=== PATIENT | male | born 1990 | race Caucasian/White ===

== ENCOUNTER 2021-09-28 12:49 | Day surgery (SDC) | payer SELFPAY ==
[2021-09-28] VITALS (8 sets, daily range): BP systolic 130–153; BP diastolic 74–101; PULSE 66–82; RESP 16–18; TEMP 35.5–36.7; O2SAT 92–98; BMI 37.5
--- NOTE | 2021-09-28 14:05 | CT_ITS ---
INDICATION: RLQ pain EXAMINATION: CT ABDOMEN AND PELVIS WITH CONTRAST - CT Abdomen And Pelvis W/ Contrast Injection TECHNIQUE: Helically acquired images were obtained of the abdomen and pelvis following IV contrast. A radiation dose optimization technique was used for this scan. IV Contrast dosage and agent: Oral contrast: None. COMPARISON: None. FINDINGS: LOWER CHEST: Lung bases are clear. No cardiomegaly or pericardial effusion. LIVER: Homogeneous. No focal mass. GALLBLADDER AND BILIARY TREE: No calcified gallstones. No gallbladder distension or wall edema. No intra- or extrahepatic biliary ductal dilation. PANCREAS: No focal cystic or solid mass. SPLEEN: Normal size without focal cystic or solid mass. ADRENAL GLANDS: No nodules. KIDNEYS AND URETERS: Normal renal size and position. No hydronephrosis. PERITONEUM: No ascites or free air. No other fluid collection. BOWEL: The stomach is visualized and is unremarkable. Fluid-filled loops of small bowel are visualized. No significant wall thickening visualized in the small bowel loops. A focal 1.3 cm density is visualized in the distal appendix, unremarkable aeration of the proximal and distal lumen is visualized, no evidence of stranding of the adjacent fat planes at this level. No evidence of adjacent lymphadenopathy is seen. Abundance of stool in the large bowel loops, no evidence of bowel wall thickening is seen. Scattered diverticular disease visualized in the large bowel, no evidence of acute diverticulitis is seen. A 2.2 cm segment of distal sigmoid demonstrates circumferential wall thickening as visualized on axial series 2 image 96, this could be artifactual due to peristalsis however would recommend follow-up evaluation. No evidence of endoluminal masses is seen. No stomach or bowel distension. No focal inflammatory change. LYMPH NODES: Scattered subtle mesenteric and retroperitoneal lymph nodes are seen. VESSELS: Aorta is non-dilated. URINARY BLADDER: Unremarkable. REPRODUCTIVE ORGANS: No pelvic masses. ABDOMINAL WALL: No discrete abdominal or pelvic wall hernia. BONES: No lytic or blastic abnormality. CT/Abdomen/Pelvis W IV Cont ONLY IMPRESSION: Scattered mesenteric lymph nodes visualized, differential diagnosis would include mesenteric adenitis. No evidence of stranding of the peritoneal fat planes is seen. Focal areas of increased attenuation visualized in the distal appendix with mild wall thickening seen at this segment, would recommend clinical correlation as there is no stranding of adjacent fat planes or adjacent lymphadenopathy however this could represent early appendicitis. 2.2 cm segment of distal sigmoid demonstrates circumferential wall thickening and luminal narrowing seen on axial series 2 image 96, this could be artifactual due to peristalsis however would recommend follow-up evaluation. Electronically Signed: Shola Miranda MD at 15:20 EST Tel , Service support ,
--- NOTE | 2021-09-28 14:07 | EDS_ITS ---
HPI <Dr. Tim Steven MD - Last Filed: 09/29/21 16:38> HPI - GI History of Present Illness Chief Complaint: Abd Pain Informant: patient Narrative Narrative: Patient patient presents with right lower quadrant pain. He states he has had mild nasal congestion with a little bit of cough for a few days. He does not feel ill. He has no fevers chills. No nausea vomiting diarrhea. No muscle aches. He has had Covid vaccinations. He states he has been coughing harshly. He went out to smoke a cigarette and then coughed very hard and developed right lower quadrant pain. However, he thinks it was hurting a little bit even before he coughed. It hurts when he coughs but also when he sits up or moves or twists. But it also hurts if he hits bumps. He still has not developed nausea vomiting fevers chills or diarrhea. He has had lumbar surgery with anterior approach but no actual intra-abdominal surgery other than that. [facility] <Dr. Tim Steven MD - Last Filed: 09/29/21 16:38> [facility] Medical History Anxiety Home Medications hydroxyzine pamoate 50 mg PO BID 09/28/21 [History Last Taken Unknown] naltrexone 50 mg PO DAILY 09/28/21 [History Last Taken Unknown] oxycodone-acetaminophen [Percocet] 1 tab PO Q4H PRN 5 Days #20 tab 09/28/21 [Rx Last Taken Unknown] Allergy/AdvReac Type Severity Reaction Status Date / Time Penicillins Allergy Rash Verified 09/28/21 12:52 prednisone Allergy Anaphylaxis Verified 09/28/21 12:52 Social History Smoking Status: Current every day smoker tobacco type: cigarettes ROS <Dr. Tim Steven MD - Last Filed: 09/29/21 16:38> ROS ED Constitutional Constitutional ED: Denies fever(s) ENT ENT ED: Reports rhinorrhea; Denies ear pain Cardiovascular Cardiovascular: Denies chest pain Respiratory/Chest Respiratory/Chest: Reports cough; Denies dyspnea or sputum Gastrointestinal Gastrointestinal: Reports abdominal pain; Denies diarrhea, nausea or vomiting Musculoskeletal Musculoskeletal: Denies arthralgias, myalgias or neck pain Integumentary Denies rash Neurologic Neurologic: Denies headache(s) Endocrine Endocrinology: Denies polydipsia or polyuria Hematologic/Lymphatic Hematologic/Lymphatic: Denies easy bleeding or easy bruising Allergic/Immunologic Allergic/Immunologic ED: Denies mouth swelling or urticaria EXAM <Dr. Tim Steven MD - Last Filed: 09/29/21 16:38> Physical Exam Const Vital Signs: 09/28/21 17:12 09/28/21 18:42 09/28/21 18:45 Temperature 97.8 F 98.1 F Temperature Source Oral Temporal Pulse Rate 73 82 75 Respiratory Rate 18 18 16 Respiratory Pattern Normal Blood Pressure 152/74 H 153/98 H 153/101 H Blood Pressure Mean 100 116 118 Blood Pressure Source Monitor Monitor Monitor Blood Pressure Position Semi-Fowlers Semi-Fowlers Blood Pressure Location Right Arm Right Arm Baseline BP 152/74 152/74 Pulse Ox 96 97 93 Oxygen Delivery Method Room Air Room Air Room Air 09/28/21 19:01 09/28/21 19:08 09/28/21 19:15 Temperature 97.4 F L Temperature Source Temporal Pulse Rate 74 69 79 Respiratory Rate 16 16 16 Respiratory Pattern Blood Pressure 139/95 H 130/92 H Blood Pressure Mean 109 104 Blood Pressure Source Monitor Monitor Monitor Blood Pressure Position Semi-Fowlers Semi-Fowlers Semi-Fowlers Blood Pressure Location Right Arm Right Arm Right Arm Baseline BP 152/74 152/74 152/74 Pulse Ox 93 92 95 Oxygen Delivery Method Room Air Room Air Room Air 09/28/21 19:21 09/28/21 19:27 Temperature 97.4 F L Temperature Source Temporal Pulse Rate 66 Respiratory Rate 16 Respiratory Pattern Normal Blood Pressure 135/74 H Blood Pressure Mean 94 Blood Pressure Source Monitor Blood Pressure Position Semi-Fowlers Blood Pressure Location Right Arm Baseline BP 152/74 Pulse Ox 98 Oxygen Delivery Method Room Air Positive well nourished and well developed General Appearance ED: well developed and NAD HEENT Reports moist mucous membranes Eyes General Eye ED: Negative for pale conjunctiva or scleral icterus Neck no JVD Resp normal respiratory effort and clear to auscultation bilaterally Effort and Inspection: Negative for pain with movement Auscultation: Negative for rales, rhonchi or wheezes Cardio regular rate and regular rhythm GI non-distended GI Narrative: Patient does have tenderness toward his right lower quadrant. However, he also has pain with moving or twisting and sitting up. I had him sit up strain and cough and I do not feel a Spigellian hernia. Nor do I feel any inguinal hernias. Testicular exam was normal. No fullness in the inguinal region or hernia. Palpation: soft Back/Spine no CVA tenderness Neuro Sensorium / Orientation: alert <Dr. Brianna Aguilar MD - Last Filed: 09/28/21 17:29> Physical Exam Const Vital Signs: 09/28/21 17:12 09/28/21 18:42 09/28/21 18:45 Temperature 97.8 F 98.1 F Temperature Source Oral Temporal Pulse Rate 73 82 75 Respiratory Rate 18 18 16 Respiratory Pattern Normal Blood Pressure 152/74 H 153/98 H 153/101 H Blood Pressure Mean 100 116 118 Blood Pressure Source Monitor Monitor Monitor Blood Pressure Position Semi-Fowlers Semi-Fowlers Blood Pressure Location Right Arm Right Arm Baseline BP 152/74 152/74 Pulse Ox 96 97 93 Oxygen Delivery Method Room Air Room Air Room Air 09/28/21 19:01 09/28/21 19:08 09/28/21 19:15 Temperature 97.4 F L Temperature Source Temporal Pulse Rate 74 69 79 Respiratory Rate 16 16 16 Respiratory Pattern Blood Pressure 139/95 H 130/92 H Blood Pressure Mean 109 104 Blood Pressure Source Monitor Monitor Monitor Blood Pressure Position Semi-Fowlers Semi-Fowlers Semi-Fowlers Blood Pressure Location Right Arm Right Arm Right Arm Baseline BP 152/74 152/74 152/74 Pulse Ox 93 92 95 Oxygen Delivery Method Room Air Room Air Room Air 09/28/21 19:21 09/28/21 19:27 Temperature 97.4 F L Temperature Source Temporal Pulse Rate 66 Respiratory Rate 16 Respiratory Pattern Normal Blood Pressure 135/74 H Blood Pressure Mean 94 Blood Pressure Source Monitor Blood Pressure Position Semi-Fowlers Blood Pressure Location Right Arm Baseline BP 152/74 Pulse Ox 98 Oxygen Delivery Method Room Air MDM <Dr. Tim Steven MD - Last Filed: 09/29/21 16:38> [facility] Narrative Medical decision making narrative: Patient's white count is normal. Electrolytes are unremarkable. Urine is normal. CT scan shows some mixed findings. There is some mild lymphadenopathy. There is also a segment of the appendix that is a little thickened. But there is no periappendiceal stranding or inflammation. I talked with the patient again. He thinks most of the pain really started with the cough. He may have had some pain prior to it though. His story is not good for classic appendicitis. However he does have some concerning findings on CT. I discussed the case with our surgeon, Dr. Singh. He will come in to the ER to see him to make final decision. We are pending the result at this time. Patient will be turned over to the oncoming emergency physician pending this eval. since the patient has had some mild congestion and cough we will send off with Covid. However he is not having many of the other symptoms that are normally associated with this. Lab Data Attestation: I reviewed the patient's lab results. Labs: Laboratory Results - last 24 hr 09/28/21 09/28/21 09/28/21 14:10 14:10 14:25 WBC 10.8 RBC 5.08 Hgb 15.6 Hct 45.1 MCV 88.8 MCH 30.7 MCHC 34.6 RDW Std Deviation 42.6 RDW Coeff of Radha 13.1 Plt Count 226 MPV 11.8 Immature Gran % (Auto) 0.300 Neut % (Auto) 68.8 Lymph % (Auto) 22.5 Gaines % (Auto) 6.3 Eos % (Auto) 1.7 Baso % (Auto) 0.4 Absolute Neuts (auto) 7.5 Absolute Lymphs (auto) 2.44 Nucleated RBC % 0 Sodium 141 Potassium 3.8 Chloride 107 Carbon Dioxide 30.0 Anion Gap 4 L BUN 12 Creatinine 0.87 Estim Creat Clear Calc 145.69 Est GFR (MDRD) Af Amer 131 Est GFR (MDRD) Non-Af 108 BUN/Creatinine Ratio 13.8 Glucose 111 H Calcium 8.8 Urine Color Yellow Urine Clarity Clear Urine pH 8.0 Ur Specific [place] 1.015 Urine Protein Negative Urine Glucose (UA) Normal Urine Ketones Negative Urine Occult Blood Negative Urine Nitrite Negative Urine Bilirubin Negative Urine Urobilinogen Normal Ur Leukocyte Esterase Negative Urine RBC 0 SEEN Urine WBC 0 SEEN Ur Squamous Epith Cells 0-5 SEEN Urine Bacteria 0 SEEN Urine Mucus 0 SEEN Radiography Diagnostic Testing: Clinical Impression(s) from Imaging Studies Abdomen/Pelvis CT 09/28/21 14:05 IMPRESSION: Scattered mesenteric lymph nodes visualized, differential diagnosis would include mesenteric adenitis. No evidence of stranding of the peritoneal fat planes is seen. Focal areas of increased attenuation visualized in the distal appendix with mild wall thickening seen at this segment, would recommend clinical correlation as there is no stranding of adjacent fat planes or adjacent lymphadenopathy however this could represent early appendicitis. 2.2 cm segment of distal sigmoid demonstrates circumferential wall thickening and luminal narrowing seen on axial series 2 image 96, this could be artifactual due to peristalsis however would recommend follow-up evaluation. Electronically Signed: Shola Miranda MD at 15:20 EST Tel , Service support , <Dr. Brianna Aguilar MD - Last Filed: 09/28/21 17:29> [facility] Lab Data Labs: Laboratory Results - last 24 hr 09/28/21 09/28/21 09/28/21 14:10 14:10 14:25 WBC 10.8 RBC 5.08 Hgb 15.6 Hct 45.1 MCV 88.8 MCH 30.7 MCHC 34.6 RDW Std Deviation 42.6 RDW Coeff of Radha 13.1 Plt Count 226 MPV 11.8 Immature Gran % (Auto) 0.300 Neut % (Auto) 68.8 Lymph % (Auto) 22.5 Gaines % (Auto) 6.3 Eos % (Auto) 1.7 Baso % (Auto) 0.4 Absolute Neuts (auto) 7.5 Absolute Lymphs (auto) 2.44 Nucleated RBC % 0 Sodium 141 Potassium 3.8 Chloride 107 Carbon Dioxide 30.0 Anion Gap 4 L BUN 12 Creatinine 0.87 Estim Creat Clear Calc 145.69 Est GFR (MDRD) Af Amer 131 Est GFR (MDRD) Non-Af 108 BUN/Creatinine Ratio 13.8 Glucose 111 H Calcium 8.8 Urine Color Yellow Urine Clarity Clear Urine pH 8.0 Ur Specific [place] 1.015 Urine Protein Negative Urine Glucose (UA) Normal Urine Ketones Negative Urine Occult Blood Negative Urine Nitrite Negative Urine Bilirubin Negative Urine Urobilinogen Normal Ur Leukocyte Esterase Negative Urine RBC 0 SEEN Urine WBC 0 SEEN Ur Squamous Epith Cells 0-5 SEEN Urine Bacteria 0 SEEN Urine Mucus 0 SEEN Radiography Diagnostic Testing: Clinical Impression(s) from Imaging Studies Abdomen/Pelvis CT 12/27/21 14:05 IMPRESSION: Scattered mesenteric lymph nodes visualized, differential diagnosis would include mesenteric adenitis. No evidence of stranding of the peritoneal fat planes is seen. Focal areas of increased attenuation visualized in the distal appendix with mild wall thickening seen at this segment, would recommend clinical correlation as there is no stranding of adjacent fat planes or adjacent lymphadenopathy however this could represent early appendicitis. 2.2 cm segment of distal sigmoid demonstrates circumferential wall thickening and luminal narrowing seen on axial series 2 image 96, this could be artifactual due to peristalsis however would recommend follow-up evaluation. Electronically Signed: Shola Miranda MD at 15:20 EST Tel , Service support , Treatment and Re-Evaluation Comments:: Patient signed out to me pending evaluation by surgeon. Dr. Singh did present to the hospital and evaluate the patient. Plan will be to go to the OR to remove his appendix. Discharge Plan Dx/Rx/DC Orders Clinical Impression: Abdominal pain, acute, right lower quadrant Disposition Disposition: Acute Care Hospital [facility]
[2021-09-28] MEDS: 0.9% Normal Saline 1,000 ML 1000 ML IV (14:18)
[2021-09-28 14:24] LABS: Absolute Lymphocyte Count 2.44 X10^3/uL (0.83-4.51); Absolute Neutrophil Count 7.5 X10^3/uL (2.0-7.7); Basophil# 0.04 X10^3/uL; Basophil% 0.4 % (0-1); Eosinophil# 0.18 X10^3/uL; Eosinophils% 1.7 % (0-5); Hematocrit 45.1 % (40-54); Hemoglobin 15.6 g/dL (13.0-16.5); Lymphocyte # 2.44 X10^3/ul (0.83-4.51); Lymphocyte % 22.5 % (19-41); Mean Corp Hgb Conc 34.6 g/dL (32-36); Mean Corpuscular Hgb 30.7 pg (27.0-32.0); Mean Corpuscular Volume 88.8 fL (80-94); Mean Platelet Vol. 11.8 fl (6.2-12.0); Monocyte# 0.68 X10^3/uL; Monocyte% 6.3 % (0-10); NRBC Flagged by Analyzer 0 % (0-5); Neutrophil # 7.47 X10^3/uL (2.7-7.7); Neutrophil % 68.8 % (47-70); Platelet Count 226 K/mm3 (150-450); RBC Distribution Width CV 13.1 % (11.6-14.6); RBC Distribution Width SD 42.6 fl (35.1-43.9); Red Blood Count 5.08 M/mm3 (4.6-6.2); White Blood Count 10.8 K/mm3 (4.4-11.0)
[2021-09-28 14:33] LABS: Bacteria 0 SEEN /hpf (None Seen); Mucous, Urine 0 SEEN /hpf (<or=2+); Red Blood Cells-Urine 0 SEEN /hpf (0-5); White Blood Cells 0 SEEN /hpf (0-5)
[2021-09-28 14:35] LABS: Anion Gap 4 (5-15); BUN 12 mg/dL (7-18); BUN/Creat Ratio 13.8 RATIO (10-20); Calcium,Total 8.8 mg/dL (8.5-10.1); Chloride 107 mmol/L (98-107); Creatinine, Serum 0.87 mg/dL (0.70-1.30); EST Glomerular Filtration Rate 108 mL/min (>60); Est Glom Filt Rate - Afr Amer 131 mL/min (>60); Estimated Creatinine Clearance 145.69 ml/min; Glucose 111 mg/dL (74-106); Potassium 3.8 mmol/L (3.5-5.1); Sodium Level 141 mmol/L (136-145)
[2021-09-28 14:36] LABS: Color, Urine Yellow (Yellow); Glucose, Dipstick Normal (Normal); Ketone-Dipstick Negative (Negative); Leukocyte Esterase-Dipstick Negative /ul (Negative); Nitrite-Dipstick Negative (Negative); Occult Blood-Urine Negative /ul (Negative); Protein-Dipstick Negative (Negative); Specific Gravity, Urine 1.015 (1.002-1.030); Urine Bilirubin Dipstick Negative (Negative); Urine Clarity Clear (Clear); Urine Urobilinogen Normal (Normal)
[2021-09-28 14:41] LABS: Squamous Epithelial Cells - UA 0-5 SEEN /hpf (0-5)
--- NOTE | 2021-09-28 17:10 | CON.PCM.SX_ITS ---
Assessment & Plan Assessment/Plan (1) Acute appendicitis: QUALIFIERS: Acute appendicitis type: with localized peritonitis Appendicitis gangrene presence: without gangrene Appendicitis perforation presence: without perforation Appendicitis abscess presence: without abscess Qualified Code(s): K35.30 - Acute appendicitis with localized peritonitis, without perforation or gangrene PLAN: Plan will be to perform a laparoscopic appendectomy. I have couns eled the patient as to the risks of the procedure, including but not limited to: infection, bleeding, injury to any blood vessels/nerves, injury to any bowel/bladder, injury to any intraabdominal organs such as the liver/spleen, perforation of the GI tract, intraabdominal abscess/bleeding, incisional hernias, injury to the common bile duct/biliary ducts, injury to the spermatic cord/vessels/testicles, recurrence of hernia(s), complications of anesthesia, etc. The patient verbalizes understanding. HPI Consult Data Date of Consult: 09/28/21 HPI Narrative HPI Narrative: RICO DOWNING, is a 31 M who Patient patient presents with right lower quadrant pain. He states he has had mild nasal congestion with a little bit of cough for a few days. He does not feel ill. He has no fevers chills. No nausea vomiting diarrhea. No muscle aches. He has had Covid vaccinations. He states he has been coughing harshly. He went out to smoke a cigarette and then coughed very hard and developed right lower quadrant pain. However, he thinks it was hurting a little bit even before he coughed. It hurts when he coughs but also when he sits up or moves or twists. But it also hurts if he hits bumps. He still has not developed nausea vomiting fevers chills or diarrhea. He has had lumbar surgery with anterior approach but no actual intra- abdominal surgery other than that. [facility] Medical History Anxiety Home Medications hydroxyzine pamoate 50 mg PO BID 09/28/21 [History Last Taken Unknown] naltrexone 50 mg PO DAILY 09/28/21 [History Last Taken Unknown] Allergy/AdvReac Type Severity Reaction Status Date / Time Penicillins Allergy Rash Verified 09/28/21 12:52 prednisone Allergy Anaphylaxis Verified 09/28/21 12:52 Social History Smoking Status: Current every day smoker tobacco type: cigarettes ROS Constitutional Constitutional: Denies chills, fatigue or fever(s) Cardiovascular Cardiovascular: Denies chest pain Respiratory/Chest Respiratory/Chest: Reports cough Gastrointestinal Gastrointestinal: Reports abdominal pain; Denies diarrhea, nausea or vomiting Genitourinary Genitourinary: Denies change in urinary stream Physical Exam Const alert and oriented x3 General Appearance: cooperative HEENT normocephalic and head/scalp atraumatic Eyes PERRL and EOMs intact bilaterally Resp clear to auscultation bilaterally Cardio Rate: regular rate Rhythm: regular rhythm GI Palpation: tender McBurney's point and Rovsing's sign and guarding Extremity normal to inspection Lab / Micro Data Result Diagrams: 09/28/21 14:10 09/28/21 14:10 Labs: Laboratory Results - last 24 hr 09/28/21 14:10: Sodium 141, Potassium 3.8, Chloride 107, Carbon Dioxide 30.0, Anion Gap 4 L, BUN 12, Creatinine 0.87, Estim Creat Clear Calc 145.69, Est GFR (MDRD) Af Amer 131, Est GFR (MDRD) Non-Af 108, BUN/Creatinine Ratio 13.8, Glucose 111 H, Calcium 8.8 09/28/21 14:10: WBC 10.8, RBC 5.08, Hgb 15.6, Hct 45.1, MCV 88.8, MCH 30.7, MCHC 34.6, RDW Std Deviation 42.6, RDW Coeff of Radha 13.1, Plt Count 226, MPV 11.8, Immature Gran % (Auto) 0.300, Neut % (Auto) 68.8, Lymph % (Auto) 22.5, [place] % (Auto) 6.3, Eos % (Auto) 1.7, Baso % (Auto) 0.4, Absolute Neuts (auto) 7.5, Absolute Lymphs (auto) 2.44, Nucleated RBC % 0 09/28/21 14:25: Urine Color Yellow, Urine Clarity Clear, Urine pH 8.0, Ur Specific [place] 1.015, Urine Protein Negative, Urine Glucose (UA) Normal, Urine Ketones Negative, Urine Occult Blood Negative, Urine Nitrite Negative, Urine Bilirubin Negative, Urine Urobilinogen Normal, Ur Leukocyte Esterase Negative, Urine RBC 0 SEEN, Urine WBC 0 SEEN, Ur Squamous Epith Cells 0-5 SEEN, Urine Bacteria 0 SEEN, Urine Mucus 0 SEEN Radiology Impression Abdomen/Pelvis CT 09/28/21 14:05 IMPRESSION: Scattered mesenteric lymph nodes visualized, differential diagnosis would include mesenteric adenitis. No evidence of stranding of the peritoneal fat planes is seen. Focal areas of increased attenuation visualized in the distal appendix with mild wall thickening seen at this segment, would recommend clinical correlation as there is no stranding of adjacent fat planes or adjacent lymphadenopathy however this could represent early appendicitis. 2.2 cm segment of distal sigmoid demonstrates circumferential wall thickening and luminal narrowing seen on axial series 2 image 96, this could be artifactual due to peristalsis however would recommend follow-up evaluation. Electronically Signed: Shola Miranda MD at 15:20 EST Tel , Service support ,
--- NOTE | 2021-09-28 17:30 | APP_PTH ---
PATIENT: RICO DOWNING LOC: [facility] [place] U#:[id number] AGE/SX: 31/M ROOM: RE09/28/[address]: Dr. Luigi Singh MD : 1990 BED: DIS: 09/28/2021 SPEC #: [id number] RECD: 09/29/21 08:18 STATUS: TERRELL REGardenia #: [id number] STEPHEN: 09/28/21 17:[address]: Luigi Singh DEPT: SURGICAL PATHOLOGY RECD BY: Rupali Felix ENTERED: 09/29/21 09:43 SP TYPE: APPENDIX OTHR DR: No Primary Care Phys Tissues: Appendix, NOS Procedures: Surgery Specimen Level III HEADER OPERATION: Laparoscopic appendectomy PRE-OP DIAGNOSIS: Acute appendicitis TISSUE SUBMITTED: Appendix MICROSCOPIC DIAGNOSIS Appendix, appendectomy: Minimal acute appendicitis. See comment. NIC:rome 10/01/2021 COMMENT Minimal acute inflammation is noted in the lumen and superficial mucosa. The entire appendix is examined. MICROSCOPIC DESCRIPTION Slides are reviewed. GROSS DESCRIPTION Received in fixative is one container labeled with the patient's name and designated appendix. The specimen consists of an S-shaped appendix measuring 8 cm in length and up to 0.7 cm in diameter. The attached periappendiceal adipose tissue measures up to 1.5 cm in width. The serosal surface is congested. No obvious perforation is identified. The lumen is filled with fecal material. No fecalith is identified. Dietitian sections are submitted in one cassette. / SJ:rome 09/29/21 The rest of the appendix is submitted in three more cassettes, 2-4. / NIC:rome 09/30/21 TC:2 [facility]: [id number]
[2021-09-28] MEDS: Ciprofloxacin 400 MG/200 ML BAG 200 MG IV (18:05)
[2021-09-28] MEDS: metroNIDAZOLE 500 MG/100 ML BAG 100 MG IV (18:10)
--- NOTE | 2021-09-28 18:38 | PCM.OPRPT ---
Problems Associated Problem List Diagnoses (1) Acute appendicitis: Report of Operation Date of Procedure: 09/28/21 Pre-Operative Diagnosis: Acute appendicitis Post-Operative Diagnosis: Same Surgery/Procedure Performed:: Laparoscopic appendectomy Surgeon: Luigi Singh samples and repairs preparer: Nathaniel Love Type of Anesthesia: General Anesthesiologist: Gareth Arroyo Specimen's removed: Appendix Drains: None Estimated Blood Loss (mL): < 25cc Fluids Replaced: 1 l lr Description of Procedure: Patient was brought into the operating room. Placed in the supine position. Under excellent general anesthetic Nunez catheter was placed the abdomen was sterilely prepped and draped in the usual fashion. Local was injected supraumbilically. Dissection was carried down to the fascia. The fascia grasped with a [place]. Varies needle was placed inside the abdomen. The abdomen was insufflated to 15 torr. A 10/12 trocar was placed without difficulty. Suprapubic #5 trochars placed in left lower quadrant #5 trochars placed. Both of these were placed under direct visualization without injury to underlying structures. There were no adhesions identified on the anterior abdominal wall. Patient was placed in the headdown and rotated to the left. Patient was noted to have acute appendicitis. I came down on the mesoappendix with an Enseal device I had excellent hemostasis. I transected the base of the appendix with a 45 linear cutter. I had excellent hemostasis. Placed the specimen in a specimen bag delivered through the umbilical port without difficulty. Reinflated the abdomen. Ran the small bowel. No Meckel's diverticulum was identified. Inspected the pelvis no purulent fluid was identified. I removed the trochars under direct visualization good and the stasis was noted. Fascia of the umbilical port was closed with [id number] stitch of 0 Vicryl. Skin incisions were closed with subicular stitches of 4-0 Monocryl. Steri-Strips were applied sterile dressings were applied patient tolerated the procedure well. Nunez catheter was removed. Admit VTE Documentation VTE Present on Admission: No VTE Mechan Device Prophylaxis: SCD's VTE Pharm Prophylaxis ordered?: No Reason prophylaxis not ordered:: Treatment Not Indicated
--- NOTE | 2021-09-28 18:44 | DCINST_ITS ---
Discharge Instructions Procedure Appendectomy Diet Discharge Diet: Light diet - advance as tolerated (if you have questions about your diet instructions, please talk to you doctor.) Activity Discharge Activity: May Not Drive (for 3-5 days or while taking narcotic pain meds.) May shower in (days): 1 Dressing / Incision Call your doctor if your incision/area has: Continuous Slow Oozing, Sudden Increased Bleeding, Increased Pain/ Swelling, Increased Redness and Foul Smelling Discharge Call your doctor if you observe: Fever of 101 or Higher Suture Line Care: Avoid Pulling/Pushing and Avoid Pinching/Bending Additional Dressing/Incision Instructions:: Keep dressing clean and dry. Change or remove dressing in 2 days. Leave steri strips for 1 week. May protect with a gauze bandaid. Follow Up Care Please Follow Up With: Beatrice Johnson PA-C When: Call office to schedule an appointment to be seen in 1 week. Test Results: Test results from this visit will be discussed in further detail at your follow-up appointment, if applicable. Discharge Plan Admission Attending Provider: Luigi Singh Primary Care Provider: Care Physician,Denisa Primary Discharge Orders/Prescriptions Prescriptions: New oxycodone-acetaminophen [Percocet] 5-325 mg tablet 1 tab PO Q4H PRN (Reason: pain) 5 Days Qty: 20 RF: 0 No Action naltrexone 50 mg tablet 50 mg PO DAILY RF: 0 hydroxyzine pamoate 50 mg capsule 50 mg PO BID RF: 0 Referrals / Follow Up: Care Physician,No Primary [Primary Care Provider] - Beatrice Johnson PA-C [[facility] [employer]] - Disposition Disposition (needs filled in before D/C Order can be placed): Home, Self Care
[2021-09-28] MEDS: Acetaminophen 325 MG Tablet PO (19:23)
[2021-09-28] MEDS: oxyCODONE 5 MG Tablet PO (19:23)
== END 2021-09-28 19:48 | disposition home or self-care (01) ==
LOC: ED 14:09 → SDC 17:14 → ACINP 17:15
PROVIDERS: Emergency Provider Emergency Medicine; Visit Provider Surgery
PROC: 0DTJ4ZZ Resection of Appendix, Percutaneous Endoscopic Approach (ICD-10-PCS; CPT 44970; principal; 2021-09-28 17:30)
DX: K35.80 Unspecified acute appendicitis (principal); F17.210 Nicotine dependence, cigarettes, uncomplicated
CPT/HCPCS: 44970; 74177; 80048; 81001; 85025; 87426; 88304; 99282; J7030; Q9967; A4216; C1760; J0744; J2405

== ENCOUNTER 2025-01-04 16:37 | Emergency (ER) | payer SELFPAY ==
[2025-01-04 16:38] VITALS: BP 151/99; PULSE 105; RESP 18; TEMP 36.9; O2SAT 99; BMI 35.2
--- NOTE | 2025-01-04 16:55 | RAD_ITS ---
PROCEDURE: HAND MIN 3 VIEWS; FOREARM 2 VIEWS 01/04/2025 REASON FOR EXAM: INJURY TECHNIQUE: 3 view(s) of the right hand and two views of the right forearm COMPARISON: None FINDINGS: No acute fracture or dislocation. Joint spaces are maintained. No significant soft tissue swelling. No radiopaque foreign body. RAD/Hand Min 3 Views IMPRESSION: No acute fracture or dislocation of the right hand and forearm. Reading Location: [facility]
--- NOTE | 2025-01-04 16:55 | RAD_ITS ---
PROCEDURE: HAND MIN 3 VIEWS; FOREARM 2 VIEWS 01/04/2025 REASON FOR EXAM: INJURY TECHNIQUE: 3 view(s) of the right hand and two views of the right forearm COMPARISON: None FINDINGS: No acute fracture or dislocation. Joint spaces are maintained. No significant soft tissue swelling. No radiopaque foreign body. RAD/Forearm 2 Views IMPRESSION: No acute fracture or dislocation of the right hand and forearm. Reading Location: [facility]
--- NOTE | 2025-01-04 17:15 | EDS_ITS ---
HPI History of Present Illness Chief Complaint: Upper Extremity Injury [facility] Medical History Anxiety Home Medications ?Medication ?Instructions ?Recorded ?Last Taken ?Type hydroxyzine pamoate 50 mg capsule 50 mg PO BID 1 Unknown History naltrexone 50 mg tablet 50 mg PO DAILY 09/28/21 Unkn own History oxycodone-acetaminophen 5 mg-325 1 tab PO Q4H PRN pain 5 days #20 09/28/21 Unknown Rx mg tablet (Percocet) tabs Allergy/AdvReac Type Severity Reaction Status Date / Time Penicillins Allergy Rash Verified 01/04/25 16:38 prednisone Allergy Anaphylaxis Verified 01/04/25 16:38 Social History Smoking Status: Current every day smoker tobacco type: cigarettes EXAM Physical Exam
--- NOTE | 2025-01-04 17:15 | EX.ED.UPPERE ---
HPI History of Present Illness Chief Complaint: Upper Extremity Injury Informant: patient Narrative Narrative: Patient states he was trying a pole attached to a trailer out of the ground, he was using a forklift. When he came out it did so forcefully, slamming him in the right hand and wrist/forearm dorsally, and also hyperextending his thumb. He has pain basically from the proximal forearm all the way down throughout the hand and the right thumb. [id number]. No other injuries. [facility] Medical History Anxiety Home Medications ?Medication ?Instructions ?Recorded ?Last Taken ?Type hydroxyzine pamoate 50 mg capsule 50 mg PO BID 09/28/21 Unknown History naltrexone 50 mg tablet 50 mg PO DAILY 09/28/21 Unknown History oxycodone-acetaminophen 5 mg-325 1 tab PO Q4H PRN pain 5 days #20 09/28/21 Unknown Rx mg tablet (Percocet) tabs naproxen 500 mg tablet 500 mg PO BID PRN #14 tabs 01/04/25 Unknown Rx Allergy/AdvReac Type Severity Reaction Status Date / Time Penicillins Allergy Rash Verified 01/04/25 16:38 prednisone Allergy Anaphylaxis Verified 01/04/25 16:38 Social History Smoking Status: Current every day smoker tobacco type: cigarettes ROS ROS ED Constitutional Constitutional ED: Denies chills or fever(s) Musculoskeletal Musculoskeletal: Reports extremity pain; Denies neck pain Integumentary Denies Abrasions, rash or wounds Neurologic Neurologic: Denies paresthesias or weakness EXAM Physical Exam Const Vital Signs: 01/04/25 16:38 Temperature 98.4 F Temperature Source Oral Pulse Rate 105 H Respiratory Rate 18 Blood Pressure 151/99 H Blood Pressure Mean 116 Pulse Ox 99 Oxygen Delivery Method Room Air Positive well nourished and well developed General Appearance ED: well developed and NAD Neck full ROM and supple Back/Spine normal ROM and normal to inspection Extremity Extremity Narrative: Holding right upper extremity in position of comfort in front of him. He does not have bony tenderness at the elbow, but everywhere from the proximal forearm distal is tender, soft tissues, bones, fingertips, and he does not want to move anything. Inspection of the entire area is normal. There is no objective evidence of trauma, swelling, deformity, but evaluating tendon function is very limited since he refuses to move anything. He does not have any subungual hematomas. Nontender in the upper arm, shoulder, and his other 3 extremities are atraumatic and full range of motion throughout. Neuro oriented x3, no focal motor deficits and no sensory deficits noted Sensorium / Orientation: alert Psych mental status grossly normal and thought process normal Skin no wounds Rashes: no rashes MDM MDM MDM Narrative Medical decision making narrative: Obtain three-view x-ray series of the right hand and 2 view x-ray series of the forearm including the elbow. On all of these x-rays, on my interpretation there are no acute fractures or dislocations. Gave the patient a [place], as well as a prescription for naproxen once I realized that the patient is taking naltrexone, and I discussed options with regards to comfort measures to temporarily immobilize his right upper extremity. He was amenable to trying a thumb spica Velcro splint and a sling. I had offered a fabricated splint all the way down to his fingertips and up to his proximal forearm, but he is going to try the former initially. If he is not feeling better after a week or 2, he is given referral to orthopedics to use for follow-up. He is comfortable with that plan. Radiography Diagnostic Testing: Clinical Impression(s) from Imaging Studies Forearm X-Ray 01/04/25 16:55 IMPRESSION: No acute fracture or dislocation of the right hand and forearm. Reading Location: [facility] Hand X-Ray 01/04/25 16:55 IMPRESSION: No acute fracture or dislocation of the right hand and forearm. Reading Location: [facility] Discharge Plan Triage Chief Complaint: Upper Extremity Injury ED Provider: Miguel Diaz Dx/Rx/DC Orders Clinical Impression: Sprain of hand, thumb, right, Contusion of hand, right, Contusion of forearm, right Instructions: ED Hand Contusion, ED Finger Sprain Prescriptions: New naproxen 500 mg tablet 500 mg PO BID PRN Qty: 14 0RF No Action naltrexone 50 mg tablet 50 mg PO DAILY hydroxyzine pamoate 50 mg capsule 50 mg PO BID Patient Comments: TAKE 1 CAPSULE BY MOUTH TWICE DAILY oxycodone-acetaminophen [Percocet] 5-325 mg tablet 1 tab PO Q4H PRN (Reason: pain) 5 Days Qty: 20 0RF Primary Care Provider: Care Physician,No Primary Referrals: Silas Izquierdo DO [Med Staff - Active Staff] - 1 Week if not improving Print Language: Sinhala Disposition Disposition: Home, Self Care
[2025-01-04] MEDS: HYDROcodone Bitartrate/Apap 5/325 Tablet PO (17:22)
== END 2025-01-04 17:38 | disposition home or self-care (01) ==
PROVIDERS: Emergency Provider Emergency Medicine; Visit Provider Emergency Medicine
DX: S63.601A Unspecified sprain of right thumb, initial encounter (principal); S50.11XA Contusion of right forearm, initial encounter; S60.221A Contusion of right hand, initial encounter; F17.210 Nicotine dependence, cigarettes, uncomplicated; X58.XXXA Exposure to other specified factors, initial encounter
CPT/HCPCS: 73090; 73130; 99283